=== PATIENT | male | born 1950 | race Two or more races ===

== ENCOUNTER 2023-12-15 07:32 | Outpatient (CLI) | payer OTHER | END 2023-12-15 07:47 | disposition home or self-care (01) | LOC: NUCLEAR 07:32 | PROVIDERS: ATTEND Specialist | DX: C02.1 Malignant neoplasm of border of tongue (principal) ==

== ENCOUNTER 2024-11-14 07:34 | Outpatient (CLI) | payer OTHER | END 2024-11-14 07:35 | disposition home or self-care (01) | LOC: NUCLEAR 07:34 | DX: C02.8 Malignant neoplasm of overlapping sites of tongue (principal) ==